=== PATIENT | female | born 1995 ===

== ENCOUNTER 2017-03-05 12:49 | Emergency (ER) | payer MEDICAID ==
[2017-03-05 13:00] VITALS: BP 101/61; PULSE 88; RESP 18; TEMP 99.1; O2SAT 99
[2017-03-05] MEDS ORDERED: Hydrogen Peroxide 3% Soln (480ml) TP ONE (13:15)
--- NOTE | 2017-03-05 13:34 | ED PDOC ---
HPI: General Adult Time Seen by Provider: 03/05/17 13:20 Chief Complaint (Nursing): ENT Problem Chief Complaint (Provider): Ear pain History Per: Patient History/Exam Limitations: no limitations Onset/Duration Of Symptoms: Days Have you had recent travel within the past 21 days to any of the following countries: [place], [place], [place] or [place]?: No Current Symptoms Are (Timing): Still Present Severity: Moderate Additional Complaint(s): The pt is a 21yo female, presents to ED for evaluation of right ear pain with decreased hearing for the past day. Pt denies any fever or chills. She denies taking any medication for her symptoms and offers no additional medical complaints. Past Medical History Reviewed: Historical Data, Nursing Documentation, Vital Signs Vital Signs: Last Vital Signs Temp 99.1 F 03/05/17 12:58 Pulse 88 03/05/17 12:58 Resp 18 03/05/17 12:58 BP 101/61 03/05/17 12:58 Pulse Ox 99 03/05/17 13:41 - Medical History PMH: No Chronic Diseases - Surgical History Surgical History: No Surg Hx - Family History Family History: States: No Known Family Hx - Home Medications Home Medications: Ambulatory Orders Medication Instructions Recorded Neomycin/Polymyxin/Hydrocort 4 drop AD QID #1 bottle 03/05/17 [Cortisporin Otic Soln] - Allergies Allergies/Adverse Reactions: Allergies Allergy/AdvReac Type Severity Reaction Status Date / Time No Known Allergies Allergy Verified 03/05/17 12:57 Review of Systems ROS Statement: Except As Marked, All Systems Reviewed And Found Negative Constitutional: Negative for: Fever ENT: Positive for: Ear Pain Physical Exam - Reviewed Nursing Documentation Reviewed: Yes Vital Signs Reviewed: Yes - Physical Exam Appears: Positive for: Well, Non-toxic, No Acute Distress Head Exam: Positive for: ATRAUMATIC, NORMAL INSPECTION, NORMOCEPHALIC Skin: Positive for: Normal Color, Warm Eye Exam: Positive for: Normal appearance ENT: Positive for: Other (impacted cerumen noted in right ear) Neck: Positive for: Normal Cardiovascular/Chest: Positive for: Regular Rate, Rhythm Respiratory: Positive for: Normal Breath Sounds. Negative for: Respiratory Distress Neurologic/Psych: Positive for: Alert, Oriented - ECG O2 Sat by Pulse Oximetry: 99 (RA) Pulse Ox Interpretation: Normal Medical Decision Making Medical Decision Making: Time: 1325 Impression: impacted cerumen right ear Plan: * Will flush out ear with peroxide * Reassess Procedure note: Right ear irrigated with hydrogen peroxide. Plaque successfully removed. Right TM visualized and is within normal limits. * Pt advised to not go swimming this week as ear canal is slightly irritated. * Informed to observe ear and is irritation persists, use antibiotics drops for relief. Advised to f/u with PCP in 1-2 days. Scribe Attestation: All records were documented by Aleena Pineda, acting as a Scribe for CHANTEL Mccartney. Provider Scribe Attestation: All medical record entries made by the Scribe were at my direction and personally dictated by me. I have reviewed the chart and agree that the record accurately reflects my personal performance of the history, physical exam, medical decision making, and the department course for this patient. I have also personally directed, reviewed, and agree with the discharge instructions and disposition. Disposition - Clinical Impression Clinical Impression: Excessive cerumen in right ear canal - Disposition Referrals: [facility] [place] [Outside] Disposition: Routine/Home Disposition Time: 13:43 Condition: FAIR Prescriptions: Neomycin/Polymyxin/Hydrocort [Cortisporin Otic Soln] 4 drop AD QID #1 bottle Instructions: Cerumen Impaction (ED)
== END 2017-03-05 14:10 | disposition home or self-care (01) ==
LOC: H.ER 12:49
DX: H61.23 Impacted cerumen, bilateral (principal)